=== PATIENT | male | born 1990 | race Caucasian/White ===

== ENCOUNTER 2020-08-12 20:54 | Inpatient (IN) | payer OTHER ==
[2020-08-12 21:28] VITALS: BMI 31.6
[2020-08-12] MEDS ORDERED: NICOTINE POLACRILEX 2 MG GUM BUC PRN (22:09)
[2020-08-12] MEDS ORDERED: IBUPROFEN 400 MG TABLET (FP) PO PRN (22:09)
[2020-08-12] MEDS ORDERED: ACETAMINOPHEN 325 MG TABLET (FP) PO PRN ×2 (22:09)
[2020-08-12] MEDS ORDERED: ONDANSETRON *ODT* 4 MG TABLET SL PRN (22:09)
[2020-08-12] MEDS ORDERED: LOPERAMIDE HCL 2 MG CAPSULE PO PRN (22:09)
[2020-08-12] MEDS ORDERED: P-EPHED 60MG/TRIPROLIDI 2.5MG TABLET PO PRN (22:09)
[2020-08-12] MEDS ORDERED: BISMUTH SUBSALICYLATE 524 MG/30 ML UD PO PRN (22:09)
[2020-08-12] MEDS ORDERED: MAGNESIUM HYDROX 2400MG/30ML ORAL SUSPENSION 30 ML CUP PO PRN (22:09)
[2020-08-12] MEDS ORDERED: MAGNESIUM CITRATE 300 ML BOTTLE PO PRN (22:09)
[2020-08-12] MEDS ORDERED: cloNIDine HCL 0.1 MG TABLET PO PRN (22:09)
[2020-08-12] MEDS ORDERED: NALOXONE HCL 0.4 MG/ML VIAL IM PRN (22:09)
[2020-08-12] MEDS ORDERED: guaiFENesin 200 MG/10 ML 10 ML UNIT-DOSE CUPS PO PRN (22:09)
[2020-08-12] MEDS ORDERED: DICYCLOMINE HCL 10 MG CAPSULE PO PRN (22:09)
[2020-08-12] MEDS ORDERED: MENTHOL/PHENOL 1 EACH UD MM PRN (22:09)
[2020-08-12] MEDS ORDERED: ALBUTEROL SO4 HFA INHALER IH PRN (22:43)
[2020-08-12] MEDS ORDERED: METHADONE HCL 10 MG TABLET (FOR DETOX USE ONLY) PO ONE (22:45)
[2020-08-12] MEDS: hydrOXYzine PAMOATE 25 MG CAPSULE (FP) PO PRN (22:59)
[2020-08-13] MEDS: METHOCARBAMOL 500 MG TABLET PO PRN ×3 (01:18→22:17)
[2020-08-13] MEDS: PRENATAL VITAMINS W/ FOLIC ACID TABLET (FP) PO SCH (09:08)
[2020-08-13] MEDS ORDERED: METHADONE HCL 10 MG TABLET (FOR DETOX USE ONLY) PO ONE (10:00)
[2020-08-13 10:39] LABS: HEMOGLOBIN 13.8 GM/dL (11.7-16.9); MCH 32.2 pg (25.7-33.7); MCHC 33.7 g/dl (32.0-35.9); MEAN CELL VOLUME 95.5 fl (80-96); MEAN PLT VOLUME 8.3 fl (7.5-11.1); PLATELET COUNT 255 K/MM3 (134-434); POTASSIUM 3.9 mmol/L (3.5-5.1); RBC 4.29 M/mm3 (4.00-5.60); RDW 13.4 % (11.9-15.9); WHITE BLOOD COUNT 10.1 K/mm3 (4.0-10.0)
[2020-08-13 10:42] LABS: ALBUMIN 3.4 g/dl (3.4-5.0); BLOOD UREA NITROGEN 11.5 mg/dL (7-18)
[2020-08-13 10:45] LABS: CREATININE 0.8 mg/dL (0.55-1.3)
[2020-08-13 10:47] LABS: BILIRUBIN,TOTAL 0.4 mg/dL (0.2-1)
[2020-08-13] MEDS: hydrOXYzine PAMOATE 25 MG CAPSULE (FP) PO PRN ×2 (11:32→18:30)
[2020-08-13 11:36] LABS: HIV INTERPRETATION NEGATIVE (NEGATIVE)
[2020-08-13] MEDS ORDERED: GABAPENTIN 100 MG CAPSULE PO ONE (12:00)
[2020-08-13] MEDS: NEBIVOLOL 10 MG TABLET (FP) PO SCH (12:12)
[2020-08-13] MEDS: NICOTINE 14 MG/24 HOURS TOPICAL PATCH TD SCH (12:14)
[2020-08-13] MEDS: diazePAM 5 MG TABLET PO PRN ×2 (13:53→20:21)
[2020-08-13] MEDS ORDERED: DOCUSATE SODIUM 100 MG CAPSULE (FP) PO PRN (14:00)
[2020-08-13] MEDS ORDERED: METHOCARBAMOL 750 MG TAB PO ONE (15:05)
[2020-08-13 17:52] LABS: PH,URINE 6.5 (5.0-8.0); URINE APPEARANCE CLEAR; URINE BILIRUBIN NEGATIVE (NEGATIVE); URINE COLOR YELLOW; URINE GLUCOSE (UA) NEGATIVE (NEGATIVE); URINE KETONE NEGATIVE (NEGATIVE); URINE LEUK ESTERASE NEGATIVE (NEGATIVE); URINE NITRITE NEGATIVE (NEGATIVE); URINE PROTEIN NEGATIVE (NEGATIVE); URINE UROBILINOGEN 0.2 mg/dL (0.2-1.0)
[2020-08-13] MEDS: THIAMINE HCL 100 MG TABLET (FP) PO SCH (22:17)
[2020-08-13] MEDS: MELATONIN 5 MG TABLETS PO SCH (22:17)
[2020-08-13] MEDS: SUVOREXANT 10 MG TABLET PO PRN (22:18)
[2020-08-14] MEDS ORDERED: METHADONE HCL 5 MG TABLET (FOR DETOX USE ONLY) PO ONE (10:00)
[2020-08-14] MEDS: PRENATAL VITAMINS W/ FOLIC ACID TABLET (FP) PO SCH (10:06)
[2020-08-14] MEDS: NEBIVOLOL 10 MG TABLET (FP) PO SCH (10:07)
[2020-08-14] MEDS: NICOTINE 14 MG/24 HOURS TOPICAL PATCH TD SCH (10:08)
[2020-08-14] MEDS: diazePAM 5 MG TABLET PO PRN ×2 (13:24→19:49)
[2020-08-14] MEDS: hydrOXYzine PAMOATE 25 MG CAPSULE (FP) PO PRN (19:49)
[2020-08-14] MEDS: THIAMINE HCL 100 MG TABLET (FP) PO SCH (22:12)
[2020-08-14] MEDS: MELATONIN 5 MG TABLETS PO SCH (22:12)
[2020-08-14] MEDS: SUVOREXANT 10 MG TABLET PO PRN (22:14)
[2020-08-14] MEDS: METHOCARBAMOL 500 MG TABLET PO PRN (22:14)
[2020-08-15] MEDS: diazePAM 5 MG TABLET PO PRN ×4 (02:33→20:25)
[2020-08-15] MEDS: hydrOXYzine PAMOATE 25 MG CAPSULE (FP) PO PRN ×2 (02:40→22:07)
[2020-08-15] MEDS ORDERED: METHADONE HCL 10 MG TABLET (FOR DETOX USE ONLY) ONE (08:49)
[2020-08-15] MEDS ORDERED: METHADONE HCL 5 MG TABLET (FOR DETOX USE ONLY) ONE (08:50)
[2020-08-15] MEDS ORDERED: METHADONE (DETOX) 10 MG, METHADONE (DETOX) 5 MG PO ONE (10:00)
[2020-08-15] MEDS: NEBIVOLOL 10 MG TABLET (FP) PO SCH (10:12)
[2020-08-15] MEDS: PRENATAL VITAMINS W/ FOLIC ACID TABLET (FP) PO SCH (10:12)
[2020-08-15] MEDS: NICOTINE 14 MG/24 HOURS TOPICAL PATCH TD SCH (10:12)
[2020-08-15] MEDS: MAG HYDROX/AL HYDROX/SIMETH 30 ML UNIT-DOSE CUP PO PRN ×2 (12:19→22:07)
[2020-08-15] MEDS: METHOCARBAMOL 500 MG TABLET PO PRN (18:31)
[2020-08-15] MEDS: SUVOREXANT 10 MG TABLET PO PRN (22:07)
[2020-08-15] MEDS: MELATONIN 5 MG TABLETS PO SCH (22:07)
[2020-08-15] MEDS: THIAMINE HCL 100 MG TABLET (FP) PO SCH (22:07)
[2020-08-16] MEDS ORDERED: METHADONE HCL 10 MG TABLET (FOR DETOX USE ONLY) PO ONE (10:00)
[2020-08-16] MEDS: NICOTINE 14 MG/24 HOURS TOPICAL PATCH TD SCH (10:23)
[2020-08-16] MEDS: PRENATAL VITAMINS W/ FOLIC ACID TABLET (FP) PO SCH (10:23)
[2020-08-16] MEDS: NEBIVOLOL 10 MG TABLET (FP) PO SCH (10:24)
[2020-08-16] MEDS: diazePAM 5 MG TABLET PO PRN ×3 (10:30→22:13)
[2020-08-16] MEDS ORDERED: FLU VACCINE (FLULAVAL) PF 60 MCG/0.5 ML SYRINGE 2020-2021 IM ONE (12:00)
[2020-08-16] MEDS: MAG HYDROX/AL HYDROX/SIMETH 30 ML UNIT-DOSE CUP PO PRN (15:10)
[2020-08-16] MEDS: THIAMINE HCL 100 MG TABLET (FP) PO SCH (22:11)
[2020-08-16] MEDS: MELATONIN 5 MG TABLETS PO SCH (22:11)
[2020-08-16] MEDS: METHOCARBAMOL 500 MG TABLET PO PRN (22:15)
[2020-08-17] MEDS: diazePAM 5 MG TABLET PO PRN (05:11)
[2020-08-17] MEDS ORDERED: METHADONE HCL 5 MG TABLET (FOR DETOX USE ONLY) PO ONE (06:00)
[2020-08-17 09:26] VITALS: PULSE 98; TEMP 98.8
[2020-08-17 09:27] VITALS: BP 121/69
[2020-08-17] MEDS: NEBIVOLOL 10 MG TABLET (FP) PO SCH (10:16)
[2020-08-17] MEDS: PRENATAL VITAMINS W/ FOLIC ACID TABLET (FP) PO SCH (10:16)
[2020-08-17] MEDS: NICOTINE 14 MG/24 HOURS TOPICAL PATCH TD SCH (10:16)
[2020-08-17] MEDS: MAG HYDROX/AL HYDROX/SIMETH 30 ML UNIT-DOSE CUP PO PRN (11:17)
== END 2020-08-17 11:54 | disposition home or self-care (01) | DRG 773 ==
LOC: YASAS 20:54 → Y3N 21:57
PROVIDERS: ADMIT Allergy & Immunology; ATTEND Allergy & Immunology
PROC: HZ2ZZZZ Detoxification Services for Substance Abuse Treatment (ICD-10-PCS; principal; 2020-08-12)
DX: F11.23 Opioid dependence with withdrawal (principal); F12.20 Cannabis dependence, uncomplicated; F17.210 Nicotine dependence, cigarettes, uncomplicated; F19.282 Other psychoactive substance dependence with psychoactive substance-induced sleep disorder; F19.280 Other psychoactive substance dependence with psychoactive substance-induced anxiety disorder; F19.24 Other psychoactive substance dependence with psychoactive substance-induced mood disorder; F52.21 Male erectile disorder; I10 Essential (primary) hypertension; J45.20 Mild intermittent asthma, uncomplicated; R45.89 Other symptoms and signs involving emotional state; Z91.011 Allergy to milk products; Z56.0 Unemployment, unspecified
CPT/HCPCS: 36415; 80053; 81003; 85027; 86780; 87389; 93005; 93010; C9803; G0008; Q2036; U0003

== ENCOUNTER 2021-03-09 22:09 | Inpatient (IN) | payer OTHER ==
[2021-03-09 22:38] VITALS: BMI 34.7
[2021-03-09] MEDS ORDERED: P-EPHED 60MG/TRIPROLIDI 2.5MG TABLET PO PRN (23:20)
[2021-03-09] MEDS ORDERED: guaiFENesin 200 MG/10 ML 10 ML UNIT-DOSE CUPS PO PRN (23:20)
[2021-03-09] MEDS ORDERED: NICOTINE POLACRILEX 2 MG GUM BUC PRN (23:20)
[2021-03-09] MEDS ORDERED: DICYCLOMINE HCL 10 MG CAPSULE PO PRN (23:20)
[2021-03-09] MEDS ORDERED: MENTHOL/PHENOL 1 EACH UD MM PRN (23:20)
[2021-03-09] MEDS ORDERED: BISMUTH SUBSALICYLATE 524 MG/30 ML PO PRN (23:20)
[2021-03-09] MEDS ORDERED: hydrOXYzine PAMOATE 25 MG CAPSULE (FP) PO PRN (23:20)
[2021-03-09] MEDS ORDERED: ONDANSETRON *ODT* 4 MG TABLET SL PRN (23:20)
[2021-03-09] MEDS ORDERED: IBUPROFEN 400 MG TABLET (FP) PO PRN (23:20)
[2021-03-09] MEDS ORDERED: NALOXONE (NARCAN) HCL 4 MG/0.1 ML SPRAY NS PRN (23:20)
[2021-03-09] MEDS ORDERED: ACETAMINOPHEN 325 MG TABLET (FP) PO PRN ×2 (23:20)
[2021-03-09] MEDS ORDERED: NALOXONE HCL 0.4 MG/ML VIAL IM PRN (23:20)
[2021-03-09] MEDS ORDERED: MAGNESIUM CITRATE 300 ML BOTTLE PO PRN (23:20)
[2021-03-09] MEDS ORDERED: MAGNESIUM HYDROX 2400MG/30ML ORAL SUSPENSION 30 ML CUP PO PRN (23:20)
[2021-03-09] MEDS ORDERED: MAG HYDROX/AL HYDROX/SIMETH 30 ML UNIT-DOSE CUP PO PRN (23:20)
[2021-03-10] MEDS: METHOCARBAMOL 500 MG TABLET PO PRN ×2 (03:29→09:07)
[2021-03-10] MEDS ORDERED: ALBUTEROL SO4 HFA INHALER IH PRN (08:39)
[2021-03-10] MEDS ORDERED: cloNIDine HCL 0.1 MG TABLET PO PRN (08:40)
[2021-03-10] MEDS ORDERED: diazePAM 5 MG TABLET PO PRN (08:42)
[2021-03-10] MEDS ORDERED: METHADONE HCL 10 MG TABLET (FOR DETOX USE ONLY) PO ONE (09:00)
[2021-03-10] MEDS ORDERED: PRENATAL VITAMINS W/ FOLIC ACID TABLET (FP) PO SCH (10:00)
[2021-03-10] MEDS ORDERED: NICOTINE 14 MG/24 HOURS TOPICAL PATCH TD SCH (10:00)
[2021-03-10] MEDS ORDERED: NEBIVOLOL 10 MG TABLET (FP) PO SCH (10:00)
[2021-03-10 10:48] LABS: HEMATOCRIT 40.6 % (35.4-49); HEMOGLOBIN 13.8 GM/dL (11.7-16.9); MCH 30.1 pg (25.7-33.7); MCHC 33.9 g/dl (32.0-35.9); MEAN CELL VOLUME 88.7 fl (80-96); MEAN PLT VOLUME 8.2 fl (7.5-11.1); PLATELET COUNT 255 10^3/uL (134-434); RBC 4.58 M/mm3 (4.00-5.60); RDW 14.1 % (11.9-15.9)
[2021-03-10 11:19] LABS: BLOOD UREA NITROGEN 9.3 mg/dL (7-18)
[2021-03-10 12:01] LABS: BILIRUBIN,TOTAL 0.4 mg/dL (0.2-1)
[2021-03-10 12:03] LABS: ALBUMIN 3.6 g/dl (3.4-5.0)
[2021-03-10 12:04] LABS: CREATININE 0.7 mg/dL (0.55-1.3)
[2021-03-10 12:08] LABS: TOT PROT 7.4 g/dl (6.4-8.2)
[2021-03-10 16:56] VITALS: BP 109/64; PULSE 80; TEMP 96.9
[2021-03-10] MEDS ORDERED: SUVOREXANT 10 MG TABLET PO PRN (22:00)
[2021-03-10] MEDS ORDERED: THIAMINE HCL 100 MG TABLET (FP) PO SCH (22:00)
[2021-03-10] MEDS ORDERED: MELATONIN 5 MG TABLETS PO SCH (22:00)
[2021-03-11] MEDS ORDERED: METHADONE (DETOX) 20 MG, METHADONE (DETOX) 5 MG PO ONE (10:00)
[2021-03-12] MEDS ORDERED: METHADONE HCL 10 MG TABLET (FOR DETOX USE ONLY) PO ONE (10:00)
[2021-03-13] MEDS ORDERED: METHADONE (DETOX) 10 MG, METHADONE (DETOX) 5 MG PO ONE (10:00)
[2021-03-14] MEDS ORDERED: METHADONE HCL 10 MG TABLET (FOR DETOX USE ONLY) PO ONE (10:00)
[2021-03-15] MEDS ORDERED: METHADONE HCL 5 MG TABLET (FOR DETOX USE ONLY) PO ONE (06:00)
== END 2021-03-10 17:50 | disposition left against medical advice (07) | DRG 770 ==
LOC: YASAS 22:09 → Y3N 03-10 00:21 → UNDOADMIN 03-10 00:21 → UNDODISIN 03-10 17:50
PROVIDERS: ADMIT Allergy & Immunology; ATTEND Allergy & Immunology
PROC: HZ2ZZZZ Detoxification Services for Substance Abuse Treatment (ICD-10-PCS; principal; 2021-03-10)
DX: F11.23 Opioid dependence with withdrawal (principal); F12.20 Cannabis dependence, uncomplicated; F17.210 Nicotine dependence, cigarettes, uncomplicated; F19.282 Other psychoactive substance dependence with psychoactive substance-induced sleep disorder; F19.24 Other psychoactive substance dependence with psychoactive substance-induced mood disorder; I10 Essential (primary) hypertension; J45.909 Unspecified asthma, uncomplicated; R45.89 Other symptoms and signs involving emotional state; Z98.890 Other specified postprocedural states; Z87.11 Personal history of peptic ulcer disease
CPT/HCPCS: 36415; 80053; 85027; 86780; C9803; Q0162; U0003; U0005

== ENCOUNTER 2021-12-21 01:00 | Inpatient (IN) | payer OTHER ==
[2021-12-21] MEDS ORDERED: MENTHOL/PHENOL 1 EACH UD MM PRN (01:53)
[2021-12-21] MEDS ORDERED: ACETAMINOPHEN 325 MG TABLET (FP) PO PRN ×2 (01:53)
[2021-12-21] MEDS ORDERED: P-EPHED 60MG/TRIPROLIDI 2.5MG TABLET PO PRN (01:53)
[2021-12-21] MEDS ORDERED: MAGNESIUM CITRATE 300 ML BOTTLE PO PRN (01:53)
[2021-12-21] MEDS ORDERED: ONDANSETRON *ODT* 4 MG TABLET SL PRN (01:53)
[2021-12-21] MEDS ORDERED: MAG HYDROX/AL HYDROX/SIMETH 30 ML UNIT-DOSE CUP PO PRN (01:53)
[2021-12-21] MEDS ORDERED: LOPERAMIDE HCL 2 MG CAPSULE PO PRN (01:53)
[2021-12-21] MEDS ORDERED: BISMUTH SUBSALICYLATE 524 MG/30 ML PO PRN (01:53)
[2021-12-21] MEDS ORDERED: guaiFENesin 200 MG/10 ML 10 ML UNIT-DOSE CUPS PO PRN (01:53)
[2021-12-21] MEDS ORDERED: NALOXONE HCL 0.4 MG/ML VIAL IM PRN (01:53)
[2021-12-21] MEDS ORDERED: NICOTINE POLACRILEX 2 MG GUM BUC PRN (01:53)
[2021-12-21] MEDS ORDERED: MAGNESIUM HYDROX 2400MG/30ML ORAL SUSPENSION 30 ML CUP PO PRN (01:53)
[2021-12-21] MEDS ORDERED: IBUPROFEN 400 MG TABLET (FP) PO PRN (01:53)
[2021-12-21] MEDS ORDERED: DICYCLOMINE HCL 10 MG CAPSULE PO PRN (01:53)
[2021-12-21 06:05] LABS: EPI CELLS 4 /uL (0-25.1); HYALINE CASTS 1 /uL (0-3.1); PH,URINE 5.5 (5.0-8.0); URINE APPEARANCE CLEAR; URINE BACTERIA 2 /uL (0-1359); URINE BILIRUBIN NEGATIVE (NEGATIVE); URINE COLOR YELLOW; URINE GLUCOSE (UA) NEGATIVE (NEGATIVE); URINE KETONE TRACE (NEGATIVE); URINE LEUK ESTERASE NEGATIVE (NEGATIVE); URINE NITRITE NEGATIVE (NEGATIVE); URINE PROTEIN NEGATIVE (NEGATIVE); URINE RBC 11 /uL (0-23.9); URINE UROBILINOGEN 0.2 mg/dL (0.2-1.0); URINE WBC 8 /uL (0-25.8)
[2021-12-21] MEDS ORDERED: ALBUTEROL SO4 HFA INHALER IH PRN (09:52)
[2021-12-21] MEDS ORDERED: methaDONE HCL 10 MG TABLET (FOR DETOX USE ONLY) PO ONE (10:15)
[2021-12-21] MEDS: diazePAM 5 MG TABLET PO PRN ×2 (10:19→17:39)
[2021-12-21] MEDS: NICOTINE 14 MG/24 HOURS TOPICAL PATCH TD SCH (10:20)
[2021-12-21] MEDS: PRENATAL VITAMINS W/ FOLIC ACID TABLET (FP) PO SCH (10:21)
[2021-12-21 14:36] LABS: HEMATOCRIT 41.2 % (35.4-49); HEMOGLOBIN 13.8 GM/dL (11.7-16.9); MCH 29.9 pg (25.7-33.7); MCHC 33.4 g/dl (32.0-35.9); MEAN CELL VOLUME 89.5 fl (80-96); PLATELET COUNT 293 10^3/uL (134-434); RDW 14.1 % (11.9-15.9); WHITE BLOOD COUNT 10.7 K/mm3 (4.0-10.0)
[2021-12-21 15:04] LABS: ALBUMIN 3.4 g/dl (3.4-5.0); BLOOD UREA NITROGEN 12.4 mg/dL (7-18); CALCIUM 8.8 mg/dL (8.5-10.1)
[2021-12-21 15:06] LABS: TOT PROT 7.7 g/dl (6.4-8.2)
[2021-12-21 15:10] LABS: BILIRUBIN,TOTAL 1.1 mg/dL (0.2-1)
[2021-12-21 15:52] LABS: HIV INTERPRETATION NEGATIVE (NEGATIVE)
[2021-12-21] MEDS ORDERED: MELATONIN 5 MG TABLETS PO SCH (22:00)
[2021-12-21] MEDS: THIAMINE HCL 100 MG TABLET (FP) PO SCH (22:12)
[2021-12-21] MEDS: SUVOREXANT 10 MG TABLET PO PRN (22:14)
[2021-12-22] MEDS: METHOCARBAMOL 500 MG TABLET PO PRN ×3 (02:32→22:37)
[2021-12-22] MEDS: hydrOXYzine PAMOATE 25 MG CAPSULE (FP) PO PRN (02:35)
[2021-12-22] MEDS ORDERED: methaDONE HCL 10 MG TABLET (FOR DETOX USE ONLY) ONE (08:36)
[2021-12-22] MEDS: diazePAM 5 MG TABLET PO PRN ×4 (08:40→22:13)
[2021-12-22] MEDS: cloNIDine HCL 0.1 MG TABLET PO PRN (09:34)
[2021-12-22] MEDS: PRENATAL VITAMINS W/ FOLIC ACID TABLET (FP) PO SCH (09:34)
[2021-12-22] MEDS: NICOTINE 14 MG/24 HOURS TOPICAL PATCH TD SCH (09:34)
[2021-12-22] MEDS: VITAMINS A AND D TOPICAL OINTMENT 60 GM TUBE TP SCH ×3 (14:50→23:27)
[2021-12-22] MEDS: SUVOREXANT 10 MG TABLET PO PRN (22:13)
[2021-12-22] MEDS: THIAMINE HCL 100 MG TABLET (FP) PO SCH (22:14)
[2021-12-23] MEDS: hydrOXYzine PAMOATE 25 MG CAPSULE (FP) PO PRN ×2 (00:46→13:52)
[2021-12-23] MEDS: diazePAM 5 MG TABLET PO PRN ×4 (04:36→17:49)
[2021-12-23] MEDS: METHOCARBAMOL 500 MG TABLET PO PRN (04:36)
[2021-12-23] MEDS: VITAMINS A AND D TOPICAL OINTMENT 60 GM TUBE TP SCH ×3 (07:18→17:51)
[2021-12-23] MEDS ORDERED: methaDONE HCL 10 MG TABLET (FOR DETOX USE ONLY) PO ONE (10:00)
[2021-12-23] MEDS: PRENATAL VITAMINS W/ FOLIC ACID TABLET (FP) PO SCH (10:05)
[2021-12-23] MEDS: NICOTINE 14 MG/24 HOURS TOPICAL PATCH TD SCH (12:33)
[2021-12-23] MEDS: cloNIDine HCL 0.1 MG TABLET PO PRN (15:30)
[2021-12-23 16:08] LABS: SARS-CoV-2 NAA Not Detected (Not Detected)
[2021-12-23 18:38] VITALS: BP 131/85; PULSE 93; TEMP 97.6
[2021-12-25] MEDS ORDERED: methaDONE HCL 10 MG TABLET (FOR DETOX USE ONLY) PO ONE (10:00)
== END 2021-12-23 10:07 | disposition left against medical advice (07) | DRG 770 ==
LOC: YASAS 01:00 → Y3N 02:10
PROVIDERS: ADMIT Allergy & Immunology; ATTEND Allergy & Immunology
PROC: HZ2ZZZZ Detoxification Services for Substance Abuse Treatment (ICD-10-PCS; principal; 2021-12-21)
DX: F11.23 Opioid dependence with withdrawal (principal); F12.20 Cannabis dependence, uncomplicated; F17.210 Nicotine dependence, cigarettes, uncomplicated; F19.282 Other psychoactive substance dependence with psychoactive substance-induced sleep disorder; F19.280 Other psychoactive substance dependence with psychoactive substance-induced anxiety disorder; I10 Essential (primary) hypertension; J45.20 Mild intermittent asthma, uncomplicated; K27.7 Chronic peptic ulcer, site unspecified, without hemorrhage or perforation; Z28.310 Unvaccinated for COVID-19; Z56.0 Unemployment, unspecified
CPT/HCPCS: 36415; 80053; 81003; 85027; 86780; 87389; 93005; 93010; C9803-CS; J0735; U0003; U0005

== ENCOUNTER 2022-08-18 00:50 | Inpatient (IN) | payer OTHER ==
[2022-08-18 01:27] VITALS: BMI 33.6
[2022-08-18] MEDS ORDERED: BENZOCAINE/MENTHOL (CHLORASEPTIC ) LOZENGE MM PRN (04:38)
[2022-08-18] MEDS ORDERED: ACETAMINOPHEN 325 MG TABLET (FP) PO PRN ×2 (04:38)
[2022-08-18] MEDS ORDERED: IBUPROFEN 600 MG TABLET (FP) PO PRN (04:38)
[2022-08-18] MEDS ORDERED: cloNIDine HCL 0.1 MG TABLET PO PRN (04:38)
[2022-08-18] MEDS ORDERED: ONDANSETRON *ODT* 4 MG TABLET SL PRN (04:38)
[2022-08-18] MEDS ORDERED: NALOXONE HCL (KLOXXADO) 8 MG SPRAY NS PRN (04:38)
[2022-08-18] MEDS ORDERED: DICYCLOMINE HCL 10 MG CAPSULE PO PRN (04:38)
[2022-08-18] MEDS ORDERED: methaDONE HCL 10 MG TABLET (FOR DETOX USE ONLY) PO ONE ×2 (04:38→06:30)
[2022-08-18] MEDS ORDERED: MAGNESIUM HYDROX 2400MG/30ML ORAL SUSPENSION 30 ML CUP PO PRN (04:38)
[2022-08-18] MEDS ORDERED: POLYETHYLENE GLYCOL (HEALTHYLAX) 3350 17 GM PACKET PO PRN (04:38)
[2022-08-18] MEDS ORDERED: IBUPROFEN 400 MG TABLET (FP) PO PRN (04:38)
[2022-08-18] MEDS ORDERED: LOPERAMIDE HCL 2 MG CAPSULE PO PRN (04:38)
[2022-08-18] MEDS ORDERED: MAG HYDROX/AL HYDROX/SIMETH 30 ML UNIT-DOSE CUP PO PRN (04:38)
[2022-08-18] MEDS ORDERED: BISMUTH SUBSALICYLATE 524 MG/30 ML PO PRN (04:38)
[2022-08-18] MEDS ORDERED: ALBUTEROL SO4 HFA INHALER IH PRN (09:09)
[2022-08-18] MEDS: PRENATAL VITAMINS W/ FOLIC ACID TABLET (FP) PO SCH (10:53)
[2022-08-18] MEDS: NEBIVOLOL 10 MG TABLET (FP) PO SCH (13:17)
[2022-08-18] MEDS: MELATONIN 5 MG TABLETS PO SCH (22:11)
[2022-08-18] MEDS: METHOCARBAMOL 500 MG TABLET PO PRN (22:12)
[2022-08-18] MEDS: THIAMINE HCL 100 MG TABLET (FP) PO SCH (22:12)
[2022-08-19 10:23] LABS: HEMATOCRIT 43.8 % (35.4-49); MCH 30.9 pg (25.7-33.7); MCHC 34.2 g/dl (32.0-35.9); MEAN CELL VOLUME 90.4 fl (80-96); MEAN PLT VOLUME 8.6 fl (7.5-11.1); PLATELET COUNT 246 10^3/uL (134-434); RBC 4.84 M/mm3 (4.00-5.60); RDW 14.1 % (11.9-15.9); WHITE BLOOD COUNT 12.1 K/mm3 (4.0-10.0)
[2022-08-19] MEDS: NEBIVOLOL 10 MG TABLET (FP) PO SCH (10:28)
[2022-08-19] MEDS: PRENATAL VITAMINS W/ FOLIC ACID TABLET (FP) PO SCH (10:28)
[2022-08-19] MEDS ORDERED: cloNIDine HCL 0.1 MG TABLET PO PRN (10:30)
[2022-08-19 10:34] LABS: BLOOD UREA NITROGEN 16.1 mg/dL (7-18); CALCIUM 9.3 mg/dL (8.5-10.1)
[2022-08-19 10:37] LABS: CREATININE 0.8 mg/dL (0.55-1.3)
[2022-08-19 10:39] LABS: BILIRUBIN,TOTAL 0.9 mg/dL (0.2-1); TOT PROT 8.5 g/dl (6.4-8.2)
[2022-08-19] MEDS: diazePAM 5 MG TABLET PO PRN ×2 (17:34→22:21)
[2022-08-19] MEDS: hydrOXYzine PAMOATE 25 MG CAPSULE (FP) PO PRN (17:34)
[2022-08-19] MEDS: METHOCARBAMOL 500 MG TABLET PO PRN (21:25)
[2022-08-19] MEDS: MELATONIN 5 MG TABLETS PO SCH (22:21)
[2022-08-19] MEDS: THIAMINE HCL 100 MG TABLET (FP) PO SCH (22:21)
[2022-08-20] MEDS: diazePAM 5 MG TABLET PO PRN (06:26)
[2022-08-20] MEDS: hydrOXYzine PAMOATE 25 MG CAPSULE (FP) PO PRN (06:27)
[2022-08-20] MEDS: METHOCARBAMOL 500 MG TABLET PO PRN (08:53)
[2022-08-20 08:58] VITALS: BP 126/77; PULSE 86; RESP 16; TEMP 97.7
[2022-08-20] MEDS: PRENATAL VITAMINS W/ FOLIC ACID TABLET (FP) PO SCH (09:36)
[2022-08-20] MEDS: NEBIVOLOL 10 MG TABLET (FP) PO SCH (09:36)
[2022-08-20] MEDS ORDERED: methaDONE HCL 10 MG TABLET (FOR DETOX USE ONLY) PO ONE (10:00)
[2022-08-22] MEDS ORDERED: methaDONE HCL 10 MG TABLET (FOR DETOX USE ONLY) PO ONE (10:00)
== END 2022-08-20 11:40 | disposition left against medical advice (07) | DRG 770 ==
LOC: YASAS 00:50 → Y3N 04:57
PROVIDERS: ADMIT Allergy & Immunology; ATTEND Family Medicine Addiction Medicine
PROC: HZ2ZZZZ Detoxification Services for Substance Abuse Treatment (ICD-10-PCS; principal; 2022-08-18)
DX: F11.23 Opioid dependence with withdrawal (principal); F12.20 Cannabis dependence, uncomplicated; I10 Essential (primary) hypertension; J45.20 Mild intermittent asthma, uncomplicated; M54.50 Low back pain, unspecified; G89.29 Other chronic pain; Z87.891 Personal history of nicotine dependence; Z87.11 Personal history of peptic ulcer disease; Z91.011 Allergy to milk products; Z28.310 Unvaccinated for COVID-19; Z28.9 Immunization not carried out for unspecified reason; Z56.0 Unemployment, unspecified
CPT/HCPCS: 36415; 80053; 85027; 86780; 93005; 93010; C9803-CS; U0003; U0005